=== PATIENT | female | born 1960 | race Caucasian/White ===

== ENCOUNTER 2022-07-05 06:11 | Emergency (ER) | payer MEDICAID, OTHER ==
[~2022-07-05] VITALS: Ht 175.3 cm; Wt 80.0 kg
[2022-07-05] MEDS ORDERED: LIDOCAINE 2%HCL (LOCAL ANESTH.) INJ 20ML MDV ID ONE (08:15)
[2022-07-05] MEDS ORDERED: NEOMYCIN-BACITRACIN-POLYM UNITDOSE PKG TOP OINT TOP ONE (08:15)
[2022-07-05 09:30] LABS: Basophils # (auto) 0 10 ^3/uL (0-0.2); Basophils % (auto) 0.2 % (0.0-2.0); Eosinophils # (auto) 0 10 ^3/uL (0-0.8); Eosinophils % (auto) 0.4 % (0.0-7.0); Hematocrit 39.3 % (36.0-46.0); Hemoglobin 13.4 g/dL (12.2-16.2); Lymphocytes # (auto) 2.1 10 ^3/uL (0.4-5.4); Lymphocytes % (auto) 17.1 % (10.0-50.0); Mean Corpuscular Hemoglobin 28.7 pg (28.0-32.0); Mean Corpuscular Volume 84.6 fL (80.0-100.0); Monocytes # (auto) 0.7 10 ^3/uL (0-1.3); Monocytes % (auto) 5.2 % (0.0-12.0); Neutrophils # (auto) 9.6 10 ^3/uL (1.6-8.6); Neutrophils % (auto) 77.1 % (37.0-80.0); Nucleated Red Blood Cells % 0.1 %; Red Blood Cells 4.65 10^6/uL (4.0-5.20); Red Cell Distribution Width 14.7 % (11.8-14.3); White Blood Cell 12.4 10^3/uL (4.4-10.8)
[2022-07-05 09:42] LABS: Calcium 9.3 mg/dL (8.5-10.1); Magnesium 1.8 mg/dL (1.6-2.6); Potassium 3.6 mmol/L (3.5-5.1)
[2022-07-05 09:44] LABS: Bilirubin, Total 0.4 mg/dL (0.2-1.0); Total Protein 7.3 g/dL (6.4-8.2)
[2022-07-05] MEDS ORDERED: TETANUS-DIPTH-ACEL PERTUSSIS 0.5ML SYR Tdap IM ONE (10:00)
[2022-07-05] MEDS ORDERED: CEFD300C2 PO (11:35)
[2022-07-05 12:38] VITALS: BP 136/76
== END 2022-07-05 12:59 | disposition home or self-care (01) ==
LOC: EDUNIT# 06:11 → ER 06:11 → EDBD 06:11 → ER 12:59
DX: S01.01XA Laceration without foreign body of scalp, initial encounter (principal); E11.21 Type 2 diabetes mellitus with diabetic nephropathy; E11.42 Type 2 diabetes mellitus with diabetic polyneuropathy; I10 Essential (primary) hypertension; E11.9 Type 2 diabetes mellitus without complications; E78.5 Hyperlipidemia, unspecified; Z87.891 Personal history of nicotine dependence; W01.198A Fall on same level from slipping, tripping and stumbling with subsequent striking against other object, initial encounter; Y93.89 Activity, other specified; Y92.89 Other specified places as the place of occurrence of the external cause; Y99.8 Other external cause status
CPT/HCPCS: 12004; 36415; 70450; 80053; 83735; 85025; 90471; 90715; 93005

== ENCOUNTER 2022-07-08 10:43 | Emergency (ER) | payer MEDICAID ==
[~2022-07-08 10:43] MED LIST: CEFD300C2 PO
== END 2022-07-08 11:50 | disposition left against medical advice (07) ==
LOC: ER 10:43
DX: S09.90XA Unspecified injury of head, initial encounter (principal); Z53.21 Procedure and treatment not carried out due to patient leaving prior to being seen by health care provider; X58.XXXA Exposure to other specified factors, initial encounter; Y93.89 Activity, other specified; Y92.89 Other specified places as the place of occurrence of the external cause; Y99.8 Other external cause status

== ENCOUNTER 2022-09-01 08:33 | Inpatient (IN) | payer MEDICAID ==
[~2022-09-01] VITALS: Ht 172.7 cm; Wt 63.2 kg
[2022-09-01 09:21] LABS: Basophils # (auto) 0 10 ^3/uL (0-0.2); Basophils % (auto) 0.1 % (0.0-2.0); Eosinophils # (auto) 0 10 ^3/uL (0-0.8); Eosinophils % (auto) 0.1 % (0.0-7.0); Hematocrit 47.2 % (36.0-46.0); Lymphocytes # (auto) 1.9 10 ^3/uL (0.4-5.4); Lymphocytes % (auto) 16.6 % (10.0-50.0); Mean Corpuscular Hemoglobin 29.7 pg (28.0-32.0); Mean Corpuscular Hgb Conc. 33.9 g/dL (32.0-36.0); Mean Corpuscular Volume 87.6 fL (80.0-100.0); Monocytes # (auto) 0.5 10 ^3/uL (0-1.3); Monocytes % (auto) 4.2 % (0.0-12.0); Neutrophils # (auto) 8.9 10 ^3/uL (1.6-8.6); Nucleated Red Blood Cells % 0.1 %; Red Blood Cells 5.39 10^6/uL (4.0-5.20); Red Cell Distribution Width 14.3 % (11.8-14.3); White Blood Cell 11.3 10^3/uL (4.4-10.8)
[2022-09-01 09:36] LABS: INR 0.97 (0.9-1.15); Partial Thromboplastin Time 26.5 sec (24.6-33.4)
[2022-09-01 09:39] LABS: Albumin 4.6 g/dL (3.4-5.0); Calcium 10.4 mg/dL (8.5-10.1); Magnesium 2.2 mg/dL (1.6-2.6); Potassium 4.5 mmol/L (3.5-5.1)
[2022-09-01 09:46] LABS: BUN/Creatinine Ratio 33.6; Bilirubin, Total 0.8 mg/dL (0.2-1.0); Total Protein 8.7 g/dL (6.4-8.2)
[2022-09-01] MEDS ORDERED: LACTATED RINGER'S 1,000 ML IV ONE (10:15)
[2022-09-01] MEDS ORDERED: LISINOPRIL 20 MG TAB PO ONE (10:30)
[2022-09-01] MEDS ORDERED: ACETAMINOPHEN 325 MG TAB PO PRN (12:45)
[2022-09-01] MEDS ORDERED: HYDROcodone-ACET 5/325MG TAB PO PRN (12:45)
[2022-09-01] MEDS ORDERED: ONDANSETRON HCL 4 MG/2 ML VIAL IV PRN (12:45)
[2022-09-01] MEDS ORDERED: VANCOMYCIN PER PHARMACY 0 MG IV SCH (12:45)
[2022-09-01] MEDS ORDERED: DOCUSATE SOD 100 MG CAP PO PRN (12:45)
[2022-09-01] MEDS ORDERED: VANCOMYCIN 1GM/250ML 250 ML IV ONE (12:45)
[2022-09-01] MEDS ORDERED: MORPHINE SULFATE INJ 2 MG/ml SYRG IV PRN (12:45)
[2022-09-01] MEDS ORDERED: hydrALAZINE HCL 20 MG/ML VL IV PRN (12:45)
[2022-09-01] MEDS ORDERED: DEXTROSE (50%) 50ML SYRG IV PRN (12:45)
[2022-09-01] MEDS ORDERED: NITROGLYCERIN 0.4 MG SL TAB SL PRN (12:45)
[2022-09-01] MEDS: cefTRIAXone 1GM/50ML D5W 50 ML IV SCH (13:28)
[2022-09-01] MEDS: InsuLIN REG 1unit/0.01ml Soln (100units/ml) SC SCH (18:00)
[2022-09-01] MEDS: ACCU-CHEK COMFORT CURVE STRIP VI SCH (18:26)
[2022-09-01 20:45] LABS: Cholesterol 123 mg/dL (< 200); HDL Cholesterol 52 mg/dL (40-59); LDL Cholesterol 69 mg/dL (< 100); Triglycerides 77 mg/dL (< 150)
[2022-09-01] MEDS: ATORVASTATIN 20 MG TAB PO SCH (22:10)
[2022-09-02] MEDS: ACCU-CHEK COMFORT CURVE STRIP VI SCH ×4 (00:14→17:09)
[2022-09-02 06:07] LABS: Basophils # (auto) 0 10 ^3/uL (0-0.2); Basophils % (auto) 0.1 % (0.0-2.0); Eosinophils # (auto) 0 10 ^3/uL (0-0.8); Eosinophils % (auto) 0.2 % (0.0-7.0); Hematocrit 43.7 % (36.0-46.0); Hemoglobin 14.9 g/dL (12.2-16.2); Mean Corpuscular Hemoglobin 29.4 pg (28.0-32.0); Mean Corpuscular Volume 86.4 fL (80.0-100.0); Monocytes # (auto) 0.8 10 ^3/uL (0-1.3); Monocytes % (auto) 5.5 % (0.0-12.0); Neutrophils # (auto) 12.5 10 ^3/uL (1.6-8.6); Neutrophils % (auto) 81.2 % (37.0-80.0); Nucleated Red Blood Cells % 0.1 %; Red Blood Cells 5.06 10^6/uL (4.0-5.20); Red Cell Distribution Width 14.1 % (11.8-14.3); White Blood Cell 15.4 10^3/uL (4.4-10.8)
[2022-09-02] MEDS: InsuLIN REG 1unit/0.01ml Soln (100units/ml) SC SCH ×4 (06:15→17:09)
[2022-09-02 06:19] LABS: BUN/Creatinine Ratio 47.5; Potassium 3.9 mmol/L (3.5-5.1)
[2022-09-02] MEDS: ASPirin-EC 81 mg tab PO SCH (10:51)
[2022-09-02] MEDS: cefTRIAXone 1GM/50ML D5W 50 ML IV SCH (10:52)
[2022-09-02 11:02] LABS: Urine Bacteria FEW /hpf (None Seen); Urine Blood Negative /uL (Negative); Urine Mucus FEW (None Seen); Urine WBC 1298 /hpf (0 - 5); Urine WBC Clumps PRESENT /hpf (None Seen)
[2022-09-02 11:40] LABS: Amphetamine Screen, Urine NEGATIVE (NEGATIVE); Barbiturate Scree,Urine NEGATIVE (NEGATIVE); Benzodiazephine Screen, Urine NEGATIVE (NEGATIVE); Cannabinoid Screen, Urine POSITIVE (NEGATIVE); Cocaine Screen, Urine NEGATIVE (NEGATIVE); Opiate Scree,Urine NEGATIVE (NEGATIVE); Phencyclidine Screen, Urine NEGATIVE (NEGATIVE)
[2022-09-02] MEDS: VANCOMYCIN 1GM/250ML 250 ML IV SCH ×2 (15:15→22:28)
[2022-09-02 16:07] VITALS: BP 159/75
[2022-09-02 16:09] VITALS: BP 159/75
[2022-09-02 16:39] VITALS: BP 159/75
[2022-09-02] MEDS ORDERED: CEFTRIAXONE SODIUM 2 GM in D5W 5% 50 ML IV SCH (21:00)
[2022-09-02 22:00] VITALS: BP 139/79
[2022-09-02] MEDS: ATORVASTATIN 20 MG TAB PO SCH (22:28)
[2022-09-03] MEDS: InsuLIN REG 1unit/0.01ml Soln (100units/ml) SC SCH ×4 (06:00→17:53)
[2022-09-03] MEDS: ACCU-CHEK COMFORT CURVE STRIP VI SCH ×4 (06:11→17:45)
[2022-09-03 06:57] VITALS: BP 132/80
[2022-09-03 07:06] LABS: RPR Non Reactive (Non Reactive)
[2022-09-03 07:12] LABS: Basophils # (auto) 0 10 ^3/uL (0-0.2); Basophils % (auto) 0.2 % (0.0-2.0); Eosinophils # (auto) 0 10 ^3/uL (0-0.8); Eosinophils % (auto) 0.5 % (0.0-7.0); Hematocrit 43.4 % (36.0-46.0); Lymphocytes # (auto) 2.1 10 ^3/uL (0.4-5.4); Lymphocytes % (auto) 22.5 % (10.0-50.0); Mean Corpuscular Hemoglobin 30.5 pg (28.0-32.0); Mean Corpuscular Hgb Conc. 34.6 g/dL (32.0-36.0); Mean Corpuscular Volume 88.1 fL (80.0-100.0); Monocytes # (auto) 0.7 10 ^3/uL (0-1.3); Neutrophils # (auto) 6.4 10 ^3/uL (1.6-8.6); Neutrophils % (auto) 68.8 % (37.0-80.0); Red Blood Cells 4.93 10^6/uL (4.0-5.20); Red Cell Distribution Width 14.2 % (11.8-14.3); White Blood Cell 9.4 10^3/uL (4.4-10.8)
[2022-09-03 07:57] LABS: BUN/Creatinine Ratio 52.1; Calcium 9.7 mg/dL (8.5-10.1); Potassium 3.7 mmol/L (3.5-5.1)
[2022-09-03 08:00] VITALS: BP 132/80
[2022-09-03] MEDS: ASPirin-EC 81 mg tab PO SCH (08:50)
[2022-09-03 09:00] VITALS: BP 140/72
[2022-09-03] MEDS: CEFTRIAXONE SODIUM 2 GM in D5W 5% 50 ML IV SCH ×2 (10:00→10:51)
[2022-09-03] MEDS ORDERED: VANCOMYCIN 1GM/250ML 250 ML IV SCH (10:00)
[2022-09-03] MEDS ORDERED: AMOX-277 PO (17:29)
[2022-09-03 18:15] VITALS: BP 132/80
== END 2022-09-03 18:55 | disposition home health service (06) | DRG 58 ==
LOC: ER 08:33 → TELE 12:52 → TELE-WESTW 09-02 15:53
PROVIDERS: ADMIT Internal Medicine; ATTEND Internal Medicine
DX: G25.2 Other specified forms of tremor (principal); N17.0 Acute kidney failure with tubular necrosis; G93.41 Metabolic encephalopathy; E11.65 Type 2 diabetes mellitus with hyperglycemia; D72.829 Elevated white blood cell count, unspecified; E11.22 Type 2 diabetes mellitus with diabetic chronic kidney disease; E78.5 Hyperlipidemia, unspecified; N18.30 Chronic kidney disease, stage 3 unspecified; R29.6 Repeated falls; F17.200 Nicotine dependence, unspecified, uncomplicated; I12.9 Hypertensive chronic kidney disease with stage 1 through stage 4 chronic kidney disease, or unspecified chronic kidney disease; R13.10 Dysphagia, unspecified; R29.810 Facial weakness; Z78.9 Other specified health status; Z86.73 Personal history of transient ischemic attack (TIA), and cerebral infarction without residual deficits; Z79.82 Long term (current) use of aspirin; Z79.899 Other long term (current) drug therapy; Z82.49 Family history of ischemic heart disease and other diseases of the circulatory system
CPT/HCPCS: 36415; 36600; 70450; 70545; 70551; 71045; 80048; 80053; 80061; 80202; 80307; 80320; 81001; 82805; 82962; 83735; 83880; 84112; 84484; 85025; 85610; 85730; 86592; 86641; 87040; 87426; 87899; 93005; 93306; 95819; 96361; 96365; 96368; 97163; G0378; J0696; J1815; J7060